=== PATIENT | female | born 1975 | race Hispanic/Latino ===

== ENCOUNTER 2016-10-19 03:34 | Emergency (ER) | payer OTHER ==
[~2016-10-19] VITALS: Ht 160 cm; Wt 70.0 kg
[2016-10-19 03:46] VITALS: BP 120/82; PULSE 97; RESP 16; O2SAT 99
[2016-10-19 04:52] LABS: APPEARANCE,URINE HAZY (CLEAR,HAZY); COLOR,URINE YELLOW (YELLOW); OCCULT BLOOD,URINE NEGATIVE (NEGATIVE); UROBILINOGEN,URINE NORMAL (NORMAL)
[2016-10-19 04:53] LABS: BASOPHILS % (AUTO) 1.4 % (0-3); EOSINOPHILS % (AUTO) 3.3 % (0-5); MONOCYTES % (AUTO) 15.9 % (4-12); Mean Corpuscular Hemoglobin 30.5 pg (27.0-35.0); Mean Corpuscular Volume 94.9 fL (81-100); NEUTROPHILS % (AUTO) 35.3 % (40-74); Platelet Count 240 bil/L (150-400)
[2016-10-19 05:22] LABS: Magnesium 1.7 mg/dL (1.6-2.6)
--- NOTE | 2016-10-19 06:17 | ED.REPORT ---
HPI-Abd Pain F 40 and Over Date of Service Oct 19, 2016 ED Provider: Jovanni Soria MD A 40 year old female with a history of PID presents to the ED complaining of flank pain that began 3 days ago. Associated symptoms include subjective fever, back pain, odorous urine, nausea and pelvic pain. Her current symptoms feel similar to her previous bladder infection. The pain in her flank is exacerbated by intercourse. Back pain has become increasingly worse over the past 48 hours. She recently finished a full course of Bactrim 2 days ago. Patient is currently expressing concern because her symptoms have become gradually worse since onset. She denies any vomiting, vaginal discharge, hematuria, or dysuria. Nursing Notes Stated Complaint: PELVIC PAIN Nursing Notes Reviewed: Yes Allergies: Coded Allergies: No Known Allergies (Unverified Allergy, Unknown, 10/19/16) Uncoded Allergies: SULFA (Allergy, Intermediate, DISORIENTED, SWELL, JAUNDICE, 10/19/16) Scheduled Ciprofloxacin (Ciprofloxacin) 500 Mg Tablet 500 MG PO BID Scheduled PRN Phenazopyridine (Pyridium) 200 Mg Tablet 200 MG PO TID PRN PRN dysuria General Time Seen by MD: 06:15 Chief Complaint Flank pain right Hx Obtained From: Patient Arrived By: Walk-in Sudden in Onset?: No Onset Occurred: 3 days ago Symptom Duration: Since onset Progression since Onset: Gradually worsening Location: : Pelvis Quality: Same as prior, Painful Radiation: : Back Severity: Current: Moderate Severity: Maximum: Moderate Associated with: Reports: Nausea, Urinary tract symptoms, Denies: Dysuria, Fever, Hematuria, Vaginal discharge, Vomiting Pertinent Negative: Pt denies other symptoms Recent Healthcare: No recent doctor visit, No recent hospitalization Risk Factors )( AAA Risk Stratification Risk factors reviewed Past Medical History Past Medical History PID Broken ankle Laproscopy Six successful pregnancies Past Surgical History None reported. Smoking History Current Some Day Smoker Social History Alcohol Use: Denies alcohol use Drug Use: Denies drug use Other Social History: Good social support, , Local resident Ambulatory Status Independent Review of Systems Constitutional: Reports: Fever (subjective), Denies: Chills GI: Reports: Abdominal pain, Denies: Vomiting Female: Reports: Flank pain, Pelvic pain, Denies: Dysuria, Hematuria, Vaginal bleeding - abnl, Vaginal discharge Musculoskeletal: Reports: Back pain Complete sys rev & neg: except as marked. Physical Exam Vital Signs Vital Signs (First) Date Time Temp Pulse Resp B/P Pulse Ox O2 Delivery O2 Flow Rate FiO2 10/19/16 03:46 36.7 97 16 120/82 99 Room Air Initial VS: Reviewed Head / Eyes: Atraumatic, Normocephalic, PERRL Neck: Supple, Non-tender, Full range of motion Extremities: Vascular intact, Neuro intact, No swelling, No tenderness Skin: Warm, Dry, No cyanosis Neurologic: Alert, Oriented, Nonfocal Psychiatric: Mood/affect normal, Behavior normal, Normal thought content General/Constitutional: Awake, Alert, No acute distress, Well appearing, Well developed Respiratory / Chest: Atraumatic, Breath sounds NL, Breath sounds = bilat, No respiratory distress Cardiovascular: Heart rate NL, Regular rhythm, Heart sounds NL, No gallop, No murmurs, No rubs Abdomen: Atraumatic, Soft, No guarding, No rebound Tenderness/Guarding/Rebound: Positive: Tender diffuse (Diffuse lower abd pain) Back: Atraumatic, No midline vertebral tend BACK: Mild CVA tenderness Female Genitourinary: [place] present, Atraumatic, External genitalia NL, No bleeding, No discharge, Os closed Interpretation & Diagnostics Lab Results Interpretation Result Diagram: 10/19/16 0445 10/19/16 0445 Test 10/19/16 04:30 10/19/16 04:45 Urine Color Yellow (YELLOW) Urine Appearance Hazy (CLEAR,HAZY) Urine pH 6.0 (5.0-8.0) Urine Specific [place] 1.025 (1.003-1.035) Urine Protein Negativemg/dL (NEG,TRACE) Urine Glucose (UA) Negativemg/dL (NEGATIVE) Urine Ketones Negativemg/dL (NEGATIVE) Urine Occult Blood Negative (NEGATIVE) Urine Nitrite Positive (NEGATIVE) Urine Bilirubin Negative (NEGATIVE) Urine Urobilinogen Normalmg/dL (NORMAL) Urine Leukocyte Esterase Negative (NEGATIVE) Urine RBC 0-2/hpf (0-2) Urine WBC 0-5/hpf (0-5) Urine Epithelial Cells Moderate/hpf (NONE-MOD) Urine Crystals None seen (NONE SEEN) Urine Bacteria Many/hpf (NONE-FEW) Urine Hyaline Casts None/lpf (NONE) Urine Granular Casts None seen (NONE SEEN) Urine Waxy Casts None seen (NONE SEEN) Urine Red Blood Cell Casts None seen (NONE SEEN) Urine White Blood Cell Casts None seen (NONE SEEN) Urine Mucus None seen (None Seen) Urine Trichomonas None seen (NONE SEEN) Urine Yeast None (NONE SEEN) Urinalysis Comment None Urine Culture Reflexed Indicated White Blood Count 5.7th/mm3 (3.8-10.1) Red Blood Count 4.13mil/mm3 (3.90-5.20) Hemoglobin 12.6g/dL (12.0-15.6) Hematocrit 39.2% (35.0-46.0) Mean Corpuscular Volume 94.9fL (81-100) Mean Corpuscular Hemoglobin 30.5pg (27.0-35.0) Mean Corpuscular Hemoglobin Concent 32.1% (32.0-37.0) Red Cell Distribution Width 14.0% (12.3-15.4) Platelet Count 240bil/L (150-400) Neutrophils (%) (Auto) 35.3% (40-74) Lymphocytes (%) (Auto) 43.8% (14-46) Monocytes (%) (Auto) 15.9% (4-12) Eosinophils (%) (Auto) 3.3% (0-5) Basophils (%) (Auto) 1.4% (0-3) Sodium Level 140mEq/L (134-144) Potassium Level 4.3mEq/L (3.5-5.2) Chloride Level 104mEq/L (97-108) Carbon Dioxide Level 23mmol/L (18-29) Blood Urea Nitrogen 23mg/dL (6-24) Creatinine 0.62mg/dL (0.57-1.00) Estimat Glomerular Filtration Rate 153mL/min (>59) Glucose Level 88mg/dL (60-99) Calcium Level 8.9mg/dL (8.5-10.1) Magnesium Level 1.7mg/dL (1.6-2.6) Total Bilirubin 0.2mg/dL (0.0-1.2) Aspartate Amino Transf (AST/SGOT) 42U/L (0-50) Alanine Aminotransferase (ALT/SGPT) 93U/L (0-32) Alkaline Phosphatase 99U/L (25-150) Total Protein 6.2g/dL (6.4-8.4) Albumin 3.7g/dL (3.4-5.0) Lipase 43U/L (13-60) Hold Bird Top Tube Received (Received) Re-Eval/Medical Decision Med Decision/Clinical Course 40-year-old female complaining of pelvic pain and dysuria. Her urine suggests UTI. Her pelvic exam with no discharge no cervical motion tenderness or adnexal tenderness. Patient be treated for UTI as below. Return precautions given if any new or worsening nausea vomiting, fevers chills, abdominal pain, back pain, any other new or worsening symptoms and advised to follow up with primary doctor 1-2 days. Re-Evaluation/Progress : Time of Eval: 06:31 Re-Evaluation/Progress Note: Pt is informed of her lab results and dx. Counseled Regarding: Diagnosis, Lab results, Need for follow-up, When/why to return to ED Discharge & Departure Primary Impression: Urinary tract infection Urinary tract infection type: site unspecified Hematuria presence: without hematuria Qualified Code: N39.0 - Urinary tract infection, site not specified Disposition: Home Discharge Condition All VS Reviewed: Yes Condition: Improved Patient Instructions: Urinary Tract Infection in Women (ED) Additional Instructions: Thank you for trusting us with your care this morning. Your lab results are indicative of a urinary tract infection and I believe this is the likely cause of your symptoms. Your pelvic exam is reassuring that this is not pelvic inflammatory disease. Please take full 10 day course of Cipro as directed. Schedule a follow up appointment with your primary care physician in the next week for a recheck. Please return to the emergency department if you begin to develop any new or worsening conditions including any high fevers, chills, back pain, blood in your urine, worsening pain during urination, vomiting, weakness or lightheadedness. Referrals: [facility] (PCP) Suzanne Attestation Portions of this note were transcribed by Efren Morin. I, Dr. Soria personally performed the history, physical exam and medical decision-making; I reviewed and confirmed the accuracy of the information in the transcribed note. Signed by: Suzanne Oliveira, 10/19/16 0705. copies to: [facility] Jovanni Soria MD Oct 19, 2016 06:17 EFREN MORIN Oct 19, 2016 06:22
[2016-10-19] MEDS ORDERED: CIPR-198 PO (06:27)
[2016-10-19] MEDS ORDERED: PHEN-684 PO (07:24)
[2016-10-19 07:33] VITALS: BP 109/82; PULSE 69; RESP 17; O2SAT 99
== END 2016-10-19 07:28 | disposition home or self-care (01) ==
LOC: SED 03:34
DX: N39.0 Urinary tract infection, site not specified (principal); B96.20 Unspecified Escherichia coli [E. coli] as the cause of diseases classified elsewhere; F17.200 Nicotine dependence, unspecified, uncomplicated

== ENCOUNTER 2016-10-21 10:00 | Emergency (ER) | payer OTHER ==
[~2016-10-21] VITALS: Ht 160 cm; Wt 70.9 kg
[~2016-10-21 10:00] MED LIST: CIPR-198 PO; PHEN-684 PO
[2016-10-21 10:17] VITALS: BP 126/78; PULSE 89; RESP 16; O2SAT 100
--- NOTE | 2016-10-21 10:32 | ED.REPORT ---
HPI-Abd Pain F 40 and Over Date of Service Oct 21, 2016 ED Provider: Solo Cai MD Patient is a 40 year old female with a history of PID who presents to the ED complaining of flank pain. Associated symptoms include low back pain, weakness, dizziness, nausea and chills. She denies fever, dysuria, diarrhea, cough, shortness of breath, vomiting or constipation. Patient was seen 2 days, diagnosed with an UTI and given Cipro. She reports that that she felt better for 5 days after the first round of antibiotics and again after the second round but began feeling worse this morning. The patient was also seen on at with an UTI and a kidney infection and was given Bactrim. She states that she had an allergic reaction, so she was switched to Cipro, which she finished before being seen at the ED on 10/19/16. Nursing Notes Stated Complaint: POSS KIDNEY INFECTION Chief Complaint: Female Abdominal Pain Nursing Notes Reviewed: Yes Allergies: Coded Allergies: Sulfa (Sulfonamide Antibiotics) (Verified Allergy, Severe, Anaphylaxis, ) Scheduled Ciprofloxacin (Ciprofloxacin) 500 Mg Tablet 500 MG PO BID Scheduled PRN Hydrocodone-Acetaminophen 5-325 mg (Hydrocodone-Acetaminophen 5-325 mg) 1 Each Tablet 1-2 TABLET PO Q4H PRN PRN For Pain Phenazopyridine (Pyridium) 200 Mg Tablet 200 MG PO TID PRN PRN dysuria General Time Seen by MD: 10:12 Chief Complaint Abdominal pain Hx Obtained From: Patient Arrived By: Walk-in Sudden in Onset?: No Onset Occurred: More than a week ago... (1 month) Symptom Duration: Waxes and wanes Progression since Onset: Gradually worsening Location: : Suprapubic Quality: Painful Radiation: : Back: Flank left: Flank right Severity: Current: Moderate Associated with: Reports: Chills Recent Healthcare: No recent hospitalization, Recent doctor visit Similar Sx Previous: Yes Past Medical History Past Medical History PID Broken ankle Laproscopy Six successful pregnancies Past Surgical History tubal ligation Reports: Cholecystectomy Smoking History Current Some Day Smoker Social History Alcohol Use: Denies alcohol use Drug Use: Denies drug use Other Social History: Good social support, , Local resident Ambulatory Status Independent Review of Systems Constitutional: Reports: Chills, Weakness - generalized, Denies: Fever Respiratory: Denies: Non-productive cough, Shortness of breath GI: Reports: Abdominal pain, Nausea, Denies: Constipation, Diarrhea, Vomiting Female: Reports: Flank pain, Denies: Dysuria Musculoskeletal: Reports: Back pain Complete sys rev & neg: except as marked. Neurologic: Reports: Dizziness Physical Exam Vital Signs Vital Signs (First) Date Time Temp Pulse Resp B/P Pulse Ox O2 Delivery O2 Flow Rate FiO2 10/21/16 10:17 36.6 89 16 126/78 100 Room Air Initial VS: Reviewed General/Constitutional: Awake, Alert initially in no distress until she rolled on her side and began having shaking pain Respiratory / Chest: Atraumatic, Breath sounds NL, Breath sounds = bilat, No respiratory distress Cardiovascular: Heart rate NL, Regular rhythm, Heart sounds NL Abdomen: Atraumatic, Soft, Non-tender BACK: diffuse pain to light touch Head / Eyes: Atraumatic, Normocephalic, PERRL, EOMI Skin: Atraumatic, Color NL, No rash, Warm, Dry Neurologic: Oriented X3, Speech NL, No motor deficits, No sensory deficits Psychiatric: Affect NL, Mood NL Interpretation & Diagnostics Interpretation & Diagnostics: PELVIS US: IMPRESSION: 1. Complex left ovarian masses are present likely representing either hemorrhagic complex ovarian cyst or possibly endometriomas. Differential would also include other benign or malignant etiologies. Recommend short-term followup pelvic ultrasound in 6-12 weeks. 2. Prominence of the endometrial complex with multicystic changes which can also be assessed on followup ultrasound to assure resolution. Dictated by: Srini Rondon [facility] Interpreted: Ana Bustamante MD on 10/21/2016 at 14:52 Approved by: Ana Bustamante M.D. on 10/21/2016 at 15:09 Lab Results Interpretation Result Diagram: 10/21/16 1100 10/21/16 1100 Test 10/21/16 10:18 10/21/16 11:00 Urine Color [place] (YELLOW) Urine Appearance Hazy (CLEAR,HAZY) Urine pH (5.0-8.0) Urine Specific [place] 1.026 (1.003-1.035) Urine Protein mg/dL (NEG,TRACE) Urine Glucose (UA) mg/dL (NEGATIVE) Urine Ketones mg/dL (NEGATIVE) Urine Occult Blood (NEGATIVE) Urine Nitrite (NEGATIVE) Urine Bilirubin (NEGATIVE) Urine Urobilinogen mg/dL (NORMAL) Urine Leukocyte Esterase (NEGATIVE) Urine RBC 0-2/hpf (0-2) Urine WBC 0-5/hpf (0-5) Urine Epithelial Cells Few/hpf (NONE-MOD) Urine Crystals None seen (NONE SEEN) Urine Bacteria Few/hpf (NONE-FEW) Urine Hyaline Casts None/lpf (NONE) Urine Granular Casts None seen (NONE SEEN) Urine Waxy Casts None seen (NONE SEEN) Urine Red Blood Cell Casts None seen (NONE SEEN) Urine White Blood Cell Casts None seen (NONE SEEN) Urine Mucus Present (None Seen) Urine Trichomonas None seen (NONE SEEN) Urine Yeast None (NONE SEEN) Urinalysis Comment Color interference Urine Culture Reflexed Indicated Hold Urine Received (Received) White Blood Count 5.6th/mm3 (3.8-10.1) Red Blood Count 4.34mil/mm3 (3.90-5.20) Hemoglobin 13.5g/dL (12.0-15.6) Hematocrit 40.7% (35.0-46.0) Mean Corpuscular Volume 93.8fL (81-100) Mean Corpuscular Hemoglobin 31.1pg (27.0-35.0) Mean Corpuscular Hemoglobin Concent 33.2% (32.0-37.0) Red Cell Distribution Width 14.0% (12.3-15.4) Platelet Count 251bil/L (150-400) Neutrophils (%) (Auto) 51.0% (40-74) Lymphocytes (%) (Auto) 33.5% (14-46) Monocytes (%) (Auto) 10.6% (4-12) Eosinophils (%) (Auto) 3.4% (0-5) Basophils (%) (Auto) 1.3% (0-3) Sodium Level 140mEq/L (134-144) Potassium Level 4.5mEq/L (3.5-5.2) Chloride Level 105mEq/L (97-108) Carbon Dioxide Level 23mmol/L (18-29) Blood Urea Nitrogen 17mg/dL (6-24) Creatinine 0.71mg/dL (0.57-1.00) Estimat Glomerular Filtration Rate 131mL/min (>59) Glucose Level 94mg/dL (60-99) Calcium Level 8.9mg/dL (8.5-10.1) Total Bilirubin 0.2mg/dL (0.0-1.2) Aspartate Amino Transf (AST/SGOT) 26U/L (0-50) Alanine Aminotransferase (ALT/SGPT) 55U/L (0-32) Alkaline Phosphatase 110U/L (25-150) Total Protein 6.2g/dL (6.4-8.4) Albumin 4.0g/dL (3.4-5.0) Hold Bird Top Tube Received (Received) Lab Results Interpretation: urine preg: negative from 10/19/16 CT Abd / Pelvis Interpretation IMPRESSION: 1. No hydronephrosis, nephrolithiasis, hydroureter, or ureterolithiasis. 2. Enlarged left ovary with multiple ovarian cysts. Although these may be within physiologic limits, if there is clinical suspicion for ovarian torsion, pelvic ultrasound is recommended to evaluate blood flow to left ovary. These findings were discussed with Dr. Cai at 12:12 PM on 10/21/16. 3. Probable prior appendectomy. Dictated by: Ana Bustamante M.D. on 10/21/2016 at 12:08 Approved by: Ana Bustamante M.D. on 10/21/2016 at 12:14 Interpretation / Wet Read by: Interpret - Radiologist, Discussed w radiologist Re-Eval/Medical Decision Re-Evaluation/Progress #1: Time of Eval: 12:18 Re-Evaluation/Progress Note: Patient reports that the pain medication help took the edge off but is back to being in pain. Re-Evaluation/Progress #2: Time of Eval: 14:46 Re-Evaluation/Progress Note: Discussed all labs, CT and ultrasound results. Discussed plan for discharge. Patient understands and agrees to the plan. All questions were addressed. Counseled Regarding: Diagnosis, Lab results, Need for follow-up, When/why to return to ED Discharge & Departure Primary Impression: Flank pain Additional Impression: Ovarian cyst Laterality: left Qualified Code: N83.202 - Unspecified ovarian cyst, left side Disposition: Home Discharge Condition All VS Reviewed: Yes Condition: Stable Patient Instructions: Ovarian Cyst (ED) Additional Instructions: Your labs were normal and reassuring. We have not discovered the cause of your pain today. I highly doubt that urinary tract infection/kidney infection is the cause. I think watchful waiting is the next appropriate step. It may be appropriate to recheck her urine and culture in [address] did show ovarian cysts on your left ovary but there was no sign of a torsion on the ultrasound. You can take 1-2 Hydrocodone/APAP every 4 hours for pain. Stay on your prescribed diclofenac. Do not take ibuprofen with the diclofenac. Stop the Cipro for 48 hours and follow up with your primary care physician for a repeat urinalysis. Call your primary care physician to set up a follow up appointment. If you are still in pain at this time, you can ask for a doctor's note at that time. Return to the emergency department if you develop any new or concerning symptoms including lightheadedness and increasing pain. Referrals: [facility] Residency [facility] (PCP) Suzanne Attestation Portions of this note were transcribed by Tiffanie Dave. I, Dr. Cai personally performed the history, physical exam and medical decision-making; I reviewed and confirmed the accuracy of the information in the transcribed note. Signed by: Suzanne Marte, 10/21/16 and 1410 copies to: [facility] Solo Cai MD Oct 21, 2016 10:32 Natali Dave Oct 21, 2016 10:40
[2016-10-21] MEDS ORDERED: 0.9% Sodium Chloride 1,000 ML IV ONE (10:42)
[2016-10-21] MEDS ORDERED: HYDROcodone-APAP 10-325 mg PO ONE ×2 (10:45→14:00)
[2016-10-21] MEDS ORDERED: Ondansetron 2 mg/mL 2 mL Inj IVPUSH PRN (10:45)
[2016-10-21 10:52] LABS: APPEARANCE,URINE HAZY (CLEAR,HAZY); COLOR,URINE ORANGE (YELLOW)
[2016-10-21 11:12] LABS: BASOPHILS % (AUTO) 1.3 % (0-3); EOSINOPHILS % (AUTO) 3.4 % (0-5); MONOCYTES % (AUTO) 10.6 % (4-12); Mean Corpuscular Hemoglobin 31.1 pg (27.0-35.0); Mean Corpuscular Volume 93.8 fL (81-100); Platelet Count 251 bil/L (150-400)
--- NOTE | 2016-10-21 12:16 | DRSVH ---
PROCEDURE: CT KUB ([id number]) INDICATIONS: flank pain TECHNIQUE: Noncontrast 5 mm thick sections acquired from the diaphragms to the symphysis. 5 mm thick coronal an d sagittal reformats were then performed. For radiation dose reduction, the following was used: aut omated exposure control, adjustment of mA and/or kV according to patient size. COMPARISON: None. FINDINGS: Image quality: Excellent. Lung bases: Lung bases are clear. Heart size is normal. Urinary system: Both kidneys are normal in size. No kidney stones. No hydronephrosis or perinephri c fat stranding. Both ureters appear non-dilated throughout their expected courses. Bladder wall th ickness is normal; no calcified bladder stones. The uterus and right ovary are grossly unremarkable this noncontrast study. There are multiple left o varian cysts, the largest of which measures 3.8 x 3.3 cm in the axial plane. Other solid organs: Visualized portions of the liver and spleen are normal in size. Gallbladder is u nremarkable. Pancreas is normal in contours. No adrenal nodules. Peritoneum and bowel: Unenhanced bowel loops demonstrate normal wall thickness and caliber. The appe ndix is not visualized; however surgical clips are present in the region of the cecum in the lower qu adrant suggesting prior appendectomy. No free fluid or air. Nodes and vessels: No retroperitoneal or mesenteric adenopathy by size criteria. Aorta and inferior vena cava are normal in caliber. Abdominal wall: No ventral hernias. Pelvis: No free pelvic fluid. No inguinal hernias or adenopathy. Bones: No suspicious bony lesions. No vertebral body compression fractures. IMPRESSION: 1. No hydronephrosis, nephrolithiasis, hydroureter, or ureterolithiasis. 2. Enlarged left ovary with multiple ovarian cysts. Although these may be within physiologic limits, if there is clinical suspicion for ovarian torsion, pelvic ultrasound is recommended to evaluate bloo d flow to left ovary. These findings were discussed with Dr. Cai at 12:12 PM on 10/21/16. 3. Probable prior appendectomy. Dictated by: Ana Bustamante M.D. on 10/21/2016 at 12:08 Approved by: Ana Bustamante M.D. on 10/21/2016 at 12:14
[2016-10-21] MEDS ORDERED: HYDROmorphone 1 mg/mL Inj IVPUSH ONE ×2 (12:25→14:00)
[2016-10-21 13:56] VITALS: BP 119/73; PULSE 16; RESP 16; O2SAT 97
[2016-10-21] MEDS ORDERED: HYDR-4003 PO (15:09)
--- NOTE | 2016-10-21 15:11 | DRSVH ---
PROCEDURE: US PELVIC SONOGRAM WITH TRANSVAG AND DOPPLER, LIMITED INDICATIONS: ovarian enlargement on CT TECHNIQUE: Real-time scanning was performed of the pelvic organs, with image documentation. Additional endovagi nal scanning was necessary due to incomplete visualization of the adnexal and endometrial structures by transabdominal scanning. COMPARISON: [facility], CT, CT KUB, 10/21/2016, 11:55. FINDINGS: (orthogonal measurements) Uterus size: 9.13 cm, 6.09 cm, 6.70 cm Endometrium thickness: 1.20 cm Right ovary size: Surgically absent. Left ovary size: 6.19 cm, 4.86 cm, 4.94 cm Transabdominal scanning: Limited scanning through the kidneys shows no hydronephrosis. No pathologi c free abdominal or pelvic fluid. Endovaginal scanning: Uterus: Uterus is normal in size and appearance. Endometrium is prominent and there is multicystic changes present. Ovaries: 2 complex cystic masses involving the left ovary largest measuring 4.0 x 3.9 x 3.7 cm and th e smaller 3.5 x 2.7 x 3.3 cm. There is normal arterial and venous flow to the left ovary. Right ovary is surgically absent. IMPRESSION: 1. Complex left ovarian masses are present likely representing either hemorrhagic complex ovarian cys t or possibly endometriomas. Differential would also include other benign or malignant etiologies. Recommend short-term followup pelvic ultrasound in 6-12 weeks. 2. Prominence of the endometrial complex with multicystic changes which can also be assessed on follo wup ultrasound to assure resolution. Dictated by: Srini HERNÁNDEZ Interpreted: Ana Bustamante MD on 10/21/2016 at 14:52 Approved by: Ana Bustamante M.D. on 10/21/2016 at 15:09
[2016-10-21 15:29] VITALS: BP 97/50; PULSE 59; RESP 15; O2SAT 100
== END 2016-10-21 15:12 | disposition home or self-care (01) ==
LOC: SED 10:00
DX: N83.202 Unspecified ovarian cyst, left side (principal); M54.5 Low back pain; R53.1 Weakness; R11.0 Nausea; R68.83 Chills (without fever); Z88.2 Allergy status to sulfonamides; F17.200 Nicotine dependence, unspecified, uncomplicated
CPT/HCPCS: 36415; 74176; 76830; 76856; 80053; 81000; 85025; 87086; 87088; 93976; 96374; 96375; 96376; 99285; J1170; J1885; J2405; J7030